=== PATIENT | female | born 1990 | race Caucasian/White ===

== ENCOUNTER 2021-04-18 00:43 | Inpatient (IN) | payer BC ==
[2021-04-18] MEDS ORDERED: Butorphanol 1 MG/ML SDV IVPUSH PRN (01:52)
[2021-04-18] MEDS ORDERED: Ondansetron 4 MG/2 ML SDV IVPUSH PRN (01:52)
[2021-04-18] MEDS ORDERED: Misoprostol 200 MCG Tab PO PRN (01:52)
[2021-04-18] MEDS ORDERED: Sodium Chloride 0.9% 2.5 ML Syringe FLUSH PRN (01:52)
[2021-04-18] MEDS ORDERED: Lidocaine 1% 50 ML MDV INJECT PRN (01:52)
[2021-04-18] MEDS ORDERED: Water For Irrigation,Sterile 1,000 ML Container IRR PRN (01:52)
[2021-04-18] MEDS ORDERED: Methylergonovine 0.2 MG/1 ML Amp IM PRN (01:52)
[2021-04-18] MEDS ORDERED: Carboprost Tromethamine 250 MCG/1 ML Amp IM PRN (01:52)
[2021-04-18] MEDS ORDERED: Nalbuphine 10 MG/1 ML Vial IVPUSH PRN (01:52)
[2021-04-18] MEDS ORDERED: Sodium Chloride 0.9% 20 ML SDV IV PRN (01:52)
[2021-04-18] MEDS ORDERED: Tranexamic Acid 1,000 MG in Sodium Chloride 0.9% 100 ML IV PRN (01:52)
[2021-04-18] MEDS ORDERED: Terbutaline 1 MG/ML SDV SUBCUT PRN (01:52)
[2021-04-18] MEDS ORDERED: Sodium Chloride 0.9% 10 ML Syringe FLUSH PRN (01:52)
[2021-04-18] MEDS ORDERED: Ampicillin 2 GM in Sodium Chloride 0.9% 100 ML IV ONE (01:57)
[2021-04-18] MEDS ORDERED: Oxytocin/0.9 % Sodium Chloride 30 UNIT/500 ML BAG IV SCH ×2 (02:00)
[2021-04-18] MEDS: Lactated Ringers 1,000 ML IV SCH ×4 (02:57→20:55)
[2021-04-18] MEDS: Ampicillin 1 GM in Sodium Chloride 0.9% 50 ML IV SCH ×5 (07:18→22:47)
[2021-04-18] MEDS ORDERED: Ropivacaine 100 ML ONE (09:39)
[2021-04-18] MEDS ORDERED: ePHEDrine 50 MG/ML SDV IVPUSH PRN ×2 (10:09)
[2021-04-18] MEDS: Ropivacaine 200 MG in Premix Bag 1 BAG EPIDUR SCH ×2 (15:30→20:41)
[2021-04-18] MEDS ORDERED: Acetaminophen 500 MG Tab PO ONE (18:20)
[2021-04-18] MEDS ORDERED: Lidocaine 2% with EPINEPHrine 1:200,000 20 ML SDV ONE (21:39)
[2021-04-18] MEDS ORDERED: fentaNYL 100 MCG/2 ML SDV ONE (21:39)
[2021-04-19] MEDS ORDERED: ceFAZolin 2 GM in Premix Bag 1 BAG IV ONE (01:25)
[2021-04-19] MEDS ORDERED: Citric Acid/Sodium Citrate Solution 30 ML Cup PO ONE (01:25)
[2021-04-19] MEDS ORDERED: Oxytocin/0.9 % Sodium Chloride 30 UNIT/500 ML BAG IV SCH (01:30)
[2021-04-19] MEDS ORDERED: Oxytocin 10 Units/1 ML SDV ONE ×2 (01:33→02:32)
[2021-04-19] MEDS ORDERED: Bupivacaine 0.5% 10 ML SDV ONE (01:34)
[2021-04-19] MEDS ORDERED: Ropivacaine 0.5% 5 MG/ML 30 ML SDV ONE (01:34)
[2021-04-19] MEDS ORDERED: Ondansetron 4 MG/2 ML SDV ONE (01:36)
[2021-04-19] MEDS ORDERED: ceFAZolin 1 GM Vial ONE (01:37)
[2021-04-19] MEDS ORDERED: Albuterol 0.083% 2.5 MG/3 ML Neb Soln NEB PRN (01:49)
[2021-04-19] MEDS ORDERED: Morphine 4 MG/ML VIAL IVPUSH PRN (01:49)
[2021-04-19] MEDS ORDERED: Nalbuphine 10 MG/1 ML Vial IVPUSH PRN (01:49)
[2021-04-19] MEDS ORDERED: fentaNYL 100 MCG/2 ML SDV IVPUSH PRN ×2 (01:49)
[2021-04-19] MEDS ORDERED: Naloxone 0.4 MG/ML Syringe IVPUSH PRN (01:49)
[2021-04-19] MEDS ORDERED: Metoclopramide 10 MG/2 ML SDV IVPUSH PRN (01:49)
[2021-04-19] MEDS ORDERED: Ondansetron 4 MG/2 ML SDV IVPUSH PRN ×3 (01:49→03:01)
[2021-04-19] MEDS ORDERED: HYDROmorphone 1 MG/ML Syringe IVPUSH PRN (01:49)
[2021-04-19] MEDS ORDERED: diphenhydrAMINE 50 MG/ML SDV IVPUSH PRN ×2 (01:49→03:01)
[2021-04-19] MEDS ORDERED: Acetaminophen/oxyCODONE 325-5 MG Tab PO PRN ×2 (01:49→03:01)
[2021-04-19] MEDS ORDERED: fentaNYL 100 MCG/2 ML SDV ONE (02:08)
[2021-04-19] MEDS ORDERED: Midazolam 1 MG/ML 2 ML SDV ONE (02:17)
[2021-04-19] MEDS ORDERED: Morphine PF 10 MG/10 ML SDV ONE (02:32)
[2021-04-19] MEDS ORDERED: Lidocaine 2% 5 ML SDV ONE (02:35)
[2021-04-19] MEDS ORDERED: Lanolin 100% Cream 7 GM Tube TOP PRN (03:01)
[2021-04-19] MEDS ORDERED: Witch Hazel Medicated Pads 40/Jar TOP PRN (03:01)
[2021-04-19] MEDS ORDERED: Hydrocortisone 2.5% Crm 30 GM Tube TOP PRN (03:01)
[2021-04-19] MEDS ORDERED: Bisacodyl 10 MG Supp RECTAL PRN (03:01)
[2021-04-19] MEDS ORDERED: Lactated Ringers 1,000 ML IV SCH (03:15)
[2021-04-19] MEDS ORDERED: Oxytocin/Lactated Ringers 30 UNIT/500 ML BAG IV SCH (03:15)
[2021-04-19] MEDS: Ketorolac 30 MG/ML SDV IVPUSH SCH ×4 (04:55→21:22)
[2021-04-19] MEDS: Docusate Sodium 100 MG Cap PO SCH ×2 (09:57→21:22)
[2021-04-19] MEDS: Acetaminophen/oxyCODONE 325-5 MG Tab PO PRN (19:51)
[2021-04-20] MEDS ORDERED: Ibuprofen 800 MG Tab PO PRN (09:00)
[2021-04-20] MEDS: Docusate Sodium 100 MG Cap PO SCH ×2 (10:27→20:04)
[2021-04-20] MEDS: Acetaminophen/oxyCODONE 325-5 MG Tab PO PRN ×2 (16:30→22:31)
[2021-04-20] MEDS: Ampicillin 1 GM in Sodium Chloride 0.9% 50 ML IV SCH ×3 (22:46→22:48)
[2021-04-21] MEDS: Docusate Sodium 100 MG Cap PO SCH (11:30)
[2021-04-21] MEDS: Acetaminophen/oxyCODONE 325-5 MG Tab PO PRN (14:39)
== END 2021-04-21 15:25 | disposition home or self-care (01) | DRG 540 ==
LOC: MW.OBCHECK 00:43 → MW.OB 01:18 → MW.OBCHECK 01:51 → MW.OB 01:52 → OBSVTOIN 04-19 02:18 → MW.OB 04-19 04:47
PROVIDERS: ADMIT Obstetrics & Gynecology; ATTEND Obstetrics & Gynecology
PROC: 10D00Z1 Extraction of Products of Conception, Low, Open Approach (ICD-10-PCS; principal; 2021-04-19)
PROC: 3E0R3BZ Introduction of Anesthetic Agent into Spinal Canal, Percutaneous Approach (ICD-10-PCS; 2021-04-19)
PROC: 00HU33Z Insertion of Infusion Device into Spinal Canal, Percutaneous Approach (ICD-10-PCS; 2021-04-19)
DX: O42.02 Full-term premature rupture of membranes, onset of labor within 24 hours of rupture (principal); Z37.0 Single live birth; O99.52 Diseases of the respiratory system complicating childbirth; J45.909 Unspecified asthma, uncomplicated; O99.824 Streptococcus B carrier state complicating childbirth; O76 Abnormality in fetal heart rate and rhythm complicating labor and delivery; Z3A.39 39 weeks gestation of pregnancy; Z86.16 Personal history of COVID-19
CPT/HCPCS: 01967; 01968; 36415; 51702; 59025; 64488; 82803; 85014; 85018; 85027; 86592; 86850; 86900; 86901; A9270-GY; J0290; J0690; J1885; J2250; J2274; J2370; J2405; J2590; J2795; J3010; J3490; J7120